=== PATIENT | female | born 1970 | race American Indian/Alaskan Native ===

== ENCOUNTER 2018-02-06 14:18 | Emergency (ER) | payer SELFPAY ==
[2018-02-06] MEDS ORDERED: ZOFRAN IV ONE (14:41)
[2018-02-06] MEDS ORDERED: NACL 0.9% 1000 ML 1,000 ML IV ONE (14:41)
--- NOTE | 2018-02-06 14:47 | Emergency Department Report ---
HPI - General Chief Complaint: Nausea/Vomiting/Diarrhea Time Seen by Provider: 02/06/18 14:37 - HPI HPI: Room 7 The patient is a 47-year-old female presenting to chief complaint of impaction. The patient states she was eating baked chicken last night (careful to avoid the bones) approximately 5 minutes after eating she began to feel as though some food was stuck in her esophagus. The patient states she had a similar episode in October 2016 which required an EGD to correct the food impaction. The patient states she's been unable to tolerate anything po since the onset of her symptoms. The patient states she vomits immediately after trying to eat or drink anything. Location: Gastrointestinal system Duration: Constant since 21:30 last night Quality: Impaction Severity: Moderate Modifying factors: [see above] Context: [see above] Mode of transportation: [not driving] ED Past Medical Hx - Past Medical History Previous Medical History?: Yes Hx GERD: Yes Hx Headaches / Migraines: Yes - Surgical History Past Surgical History?: Yes Additional Surgical History: Left thigh hematoma removal after delivery - Family History Family history: no significant - Social History Smoking Status: Never Smoker Substance Use Type: None (denies illicit drug use), Alcohol (occasional) - Medications Home Medications: Home Medications Medication Instructions Recorded Confirmed Last Taken Type Eletriptan HBr [Relpax] 20 mg PO ONCE PRN 02/06/18 02/06/18 Unknown History Esomeprazole Magnesium [NexIUM] 40 mg PO QDAY 02/06/18 02/06/18 02/05/18 History Gabapentin [Neurontin] 900 mg PO TID 02/06/18 02/06/18 Unknown History Ibuprofen [Motrin] 800 mg PO Q8HR PRN 02/06/18 02/06/18 02/05/18 History ED Review of Systems ROS: Stated complaint: VOMITTING/C/O OBJECT LODGED IN THROAT Other details as noted in HPI Constitutional: no symptoms reported Gastrointestinal: abdominal pain, nausea, vomiting Physical Exam - Physical Exam Vital Signs: Vital Signs 02/06/18 14:27 Temperature 98.8 F Pulse Rate 97 H Respiratory 18 Rate Blood Pressure 126/71 O2 Sat by Pulse 98 Oximetry Physical Exam: GENERAL: The patient is well-developed well-nourished female sitting on the stretcher with emesis bag in hand appearing to be in mild discomfort. [] HEENT: Normocephalic. Atraumatic. Extraocular motions are intact. Patient has moist mucous membranes. NECK: Supple. Trachea midline. No stridor CHEST/LUNGS: Clear to auscultation. There is no respiratory distress noted. HEART/CARDIOVASCULAR: Regular. There is no tachycardia. There is no gallop rub or murmur. ABDOMEN: Abdomen is soft, with mild soreness diffusely from vomiting. Patient has normal bowel sounds. There is no abdominal distention. SKIN: There is no rash. There is no edema. There is no diaphoresis. NEURO: The patient is awake, alert, and oriented. The patient is cooperative. The patient has normal speech MUSCULOSKELETAL:There is no evidence of acute injury. ED Course Vital Signs 02/06/18 14:27 Temperature 98.8 F Pulse Rate 97 H Respiratory 18 Rate Blood Pressure 126/71 O2 Sat by Pulse 98 Oximetry - Consultations Consultation #1: 02/06/18 14:43 Gastroenterology paged 02/06/18 15:[address] Wayne. Request CBC, BMP and coags be ordered. Consultation #2: 02/06/18 19:[address] Wayne. Procedure successful. Okay to discharge home with follow-up in 2-3 weeks ED Medical Decision Making - Lab Data Result diagrams: 02/06/18 15:18 02/06/18 15:18 Laboratory Tests 02/06/18 02/06/18 02/06/18 15:18 15:18 15:18 WBC 9.8 RBC 4.78 Hgb 13.6 Hct 39.7 MCV 83 MCH 28 MCHC 34 RDW 13.1 L Plt Count 205 Lymph % (Auto) 12.7 L [place] % (Auto) 4.6 Eos % (Auto) 1.5 Baso % (Auto) 0.4 Lymph # 1.2 [place] # 0.5 Eos # 0.1 Baso # 0.0 Seg Neutrophils % 80.8 H Seg Neutrophils # 7.9 H PT 14.0 INR 1.03 APTT 29.7 Sodium 146 H Potassium 3.6 Chloride 111.6 H Carbon Dioxide 22 Anion Gap 16 BUN 11 Creatinine 0.8 Estimated GFR > 60 BUN/Creatinine Ratio 14 Glucose 109 H Calcium 7.9 L - Differential Diagnosis food impaction, esophageal web, achalasia Critical care attestation.: If time is entered above; I have spent that time in minutes in the direct care of this critically ill patient, excluding procedure time. ED Disposition Clinical Impression: Food impaction of esophagus Disposition: DC-01 TO HOME OR SELFCARE Is pt being admited?: No Does the pt Need Aspirin: No Condition: Stable Instructions: Food Impaction (ED) Additional Instructions: Return to the emergency department immediately should you develop worsening symptoms, fever, inability to tolerate food or liquid or any other concerns. Referrals: PRIMARY CARE, [Primary Care Provider] - 3-5 Days GE WAYNE MD [Staff Physician] - 02/20/18 (Dr. Wayne is a substation operator helper. Please follow-up with him in 2-3 weeks for further evaluation) Time of Disposition: 19:46
[2018-02-06 15:27] LABS: Basophils % (Auto) 0.4 % (0.0-1.8); Eosinophils # (Auto) 0.1 K/mm3 (0.0-0.4); Eosinophils % (Auto) 1.5 % (0.0-4.3); Hematocrit 39.7 % (30.3-42.9); Hemoglobin 13.6 gm/dl (10.1-14.3); Lymphocytes # (Auto) 1.2 K/mm3 (1.2-5.4); Lymphocytes % (Auto) 12.7 % (13.4-35.0); Mean Corpuscular HGB Conc 34 % (30-34); Mean Corpuscular Hemoglobin 28 pg (28-32); Mean Corpuscular Volume 83 fl (79-97); Monocytes # (Auto) 0.5 K/mm3 (0.0-0.8); Monocytes % (Auto) 4.6 % (0.0-7.3); Platelet Count 205 K/mm3 (140-440); Red Blood Count 4.78 M/mm3 (3.65-5.03); Red Cell Distribution Width 13.1 % (13.2-15.2)
[2018-02-06 15:39] LABS: INR 1.03 (0.87-1.13); Partial Thromboplastin Time 29.7 Sec. (24.2-36.6)
[2018-02-06 15:49] LABS: BUN/Creatinine Ratio 14; Blood Urea Nitrogen 11 mg/dL (7-17); Calcium 7.9 mg/dL (8.4-10.2); Hemolysis Index 15
[2018-02-06] MEDS ORDERED: NACL 0.9% 1000 ML 1,000 ML ONE (16:31)
[2018-02-06] MEDS ORDERED: WATER FOR IRRIG STERILE IR ONE (17:24)
[2018-02-06] MEDS ORDERED: DIPRIVAN 10 MG/ML IV ONE (18:31)
[2018-02-06] MEDS ORDERED: VERSED ONE (18:32)
--- NOTE | 2018-02-06 18:32 | Anesthesia Consultation ---
Anesthesia Consult and Med Hx Date of service: 02/06/18 - Airway Anesthetic Teeth Evaluation: Good ROM Head & Neck: Adequate Mental/Hyoid Distance: Adequate Mallampati Class: Class II Intubation Access Assessment: Good - Pulmonary Exam CTA: Yes - Cardiac Exam Cardiac Exam: RRR - Pre-Operative Health Status ASA Pre-Surgery Classification: ASA1 Proposed Anesthetic Plan: General - Additional Comments Anesthesia Medical History Comments: Hx migranes. NAC.
--- NOTE | 2018-02-06 18:32 | Anesthesia Day of Surgery ---
Anesthesia Day of Surgery - Day of Surgery Patient Examined: Yes Patient H&P Reviewed: Yes Patient is NPO: Yes
[2018-02-06] MEDS ORDERED: LIDOCAINE VISCOUS 2% PO ONE (19:45)
[2018-02-06 20:12] VITALS: BP 118/77
--- NOTE | 2018-02-06 20:59 | Operative Report ---
INDICATION: Food impaction. MEDICATIONS: Propofol per [employer]. COMPLICATIONS: None. DESCRIPTION OF PROCEDURE: The patient was brought to procedure suite. The patient had the procedure discussed with her at length. All risks, complications, and benefits were discussed, which the patient signed for the procedure performed. The patient was placed in left lateral decubitus position. Mouth block was placed in the patient's oral cavity. After adequate sedation medication as above, endoscope was introduced into the mouth and brought to the level of the second portion of duodenum. Retroflexion view performed. The patient's vital signs remained stable throughout the procedure. FINDINGS: There was noted to be a moderate food impaction noted. The GE junction approximately 36-38 cm from the gums. With moderate pressure, I was able to push this food material into the stomach and disimpact the esophagus. There was noted to be a moderately tight ring noted at GE junction, which was slightly dilated with passage of the scope into the stomach. There was like material with rings noted along the mid to distal esophagus, raising the possibility of eosinophilic esophagitis. No biopsies or dilation were performed during this procedure. Small hiatal hernia at GE junction. The esophagus otherwise appeared to be normal. The stomach and duodenum appeared grossly benign. Retroflexion showed no other pathology other than noted above. The patient tolerated the procedure well. No complications during the procedure. IMPRESSION: 1. Food impaction in distal esophagus, status post disimpaction. 2. Noted moderately tight ring at the gastroesophageal junction, which was the reason for the impaction. 3. Possible eosinophilic esophagitis. 4. Otherwise, benign esophagogastroduodenoscopy. RECOMMENDATIONS: 1. Soft diet. 2. The patient encouraged to chew well with liquids. 3. Proton pump inhibitor daily. 4. Follow up in the clinic, which were for esophagogastroduodenoscopy and dilation. It should be noted that dilation was not performed during the procedure given inflammation around the gastroesophageal junction during this procedure. JOB# [id number] [facility]
--- NOTE | 2018-02-07 00:37 | Consultation ---
INDICATION: Food impaction. REFERRING PHYSICIAN: Adriane Garcia MD HISTORY OF PRESENT ILLNESS: The patient is a 47-year-old black female. The patient has a history of reported food impaction 2 years ago, status post disimpaction in the Emergency Room with followup with GI and no interventions performed. The patient reports having a chicken meal last night that had gotten stuck since that time. The patient finally came to the Emergency Room this afternoon. She reports she has been unable to control her secretions. She reports some nausea. She denies any lower GI symptoms including diarrhea, constipation or rectal bleeding. The patient subsequently seen in the Emergency Room and GI consulted. PAST MEDICAL HISTORY: Food impaction. MEDICATIONS: See chart. ALLERGIES: No known drug allergies. SOCIAL HISTORY: Denies alcohol, tobacco or drug abuse. FAMILY HISTORY: Negative for colon cancer. REVIEW OF SYSTEMS: GENERAL: Reports mild weakness. HEENT: No visual complaints or tinnitus. PULMONARY: No Short of breath. No cough. No chest pain. GASTROINTESTINAL: Reports unable to swallow. All points of 13-point review of systems otherwise negative. PHYSICAL EXAMINATION: VITAL SIGNS: Temperature of 98.7, pulse 77, respiration 18, blood pressure 140/70. GENERAL: Fairly nourished black female in no acute distress. HEENT: Pupils equal, round and reactive. PULMONARY: Clear to auscultation bilaterally. CARDIOVASCULAR: Regular rhythm. Normal S1, S2. ABDOMEN: Positive bowel sounds, soft. SKIN: No obvious rashes. LABORATORY DATA: Pending. ASSESSMENT: A 47-year-old black female presents with food impaction. PLAN: 1. N.p.o. 2. IV access. 3. Plan EGD with possible food disimpaction today. JOB# [id number] [facility]
== END 2018-02-06 20:17 | disposition home or self-care (01) ==
LOC: ED 14:18
DX: K22.2 Esophageal obstruction (principal); K21.9 Gastro-esophageal reflux disease without esophagitis; G43.909 Migraine, unspecified, not intractable, without status migrainosus
CPT/HCPCS: 36415; 80048; 85025; 85610; 85730; 96361; 96374; 99283; J2250; J2405; J2704; J7030